=== PATIENT | female | born 1970 | race Caucasian/White ===

== ENCOUNTER 2018-10-22 13:16 | Emergency (ER) | payer BC ==
[~2018-10-22] VITALS: Wt 116.0 kg
[~2018-10-22 13:16] MED LIST: ALBU8.5H8 INH; PROM5SYR2 PO
[2018-10-22 13:26] VITALS: BP 139/79; PULSE 105; RESP 20
[2018-10-22] MEDS ORDERED: ALBUTEROL 0.083% (NEB) 2.5 MG/3 ML AMP HHN STA (13:56)
[2018-10-22] MEDS ORDERED: METHYLPREDNISOLONE 125 MG INJ IM ONE (14:00)
[2018-10-22] MEDS ORDERED: PRED20TA PO (14:57)
[2018-10-22] MEDS ORDERED: LEVA15HF6 INH (14:57)
[2018-10-22] MEDS ORDERED: D-ME473S2 PO (14:57)
--- NOTE | 2018-10-22 15:00 | ERD ---
ER Documentation Chief Complaint Chief Complaint COUGH, CHESTWALL PAIN INCREASES WITH COUGHING, SOB; DENIES PMH HPI 47-year-old female presents with slight coughing and possible wheezing starting today. She denies any fevers, chest pain, vomiting, abdominal pain. She has mild anterior chest pain with coughing and deep breathing. Patient denies any history of asthma. Patient denies any recent potential allergen exposures. ROS All systems reviewed and are negative except as per history of present illness. Medications Home Meds Active Scripts Dextromethorphan Hb-Promethazine Hcl* (Promethazine DM* Syrup) 473 Ml Syrup, 5 ML PO Q6 PRN for COUGH for 4 Days, ML Prov:GIOVANI HUNT MD 10/22/18 Levalbuterol* (Xopenex* HFA) 15 Gm Inha, 1-2 PUFF INH Q4 PRN for SHORTNESS OF BREATH, #1 EA Prov:GIOVANI HUNT MD 10/22/18 Prednisone* (Prednisone*) 20 Mg Tab, 40 MG PO DAILY for 4 Days, TAB Prov:GIOVANI HUNT MD 10/22/18 Albuterol Sulfate* (Proair HFA*) 8.5 Gm Hfa.aer.ad, 2 PUFF INH Q4, #1 INHALER Prov:NEVILLE OAKLEY 10/10/17 Promethazine HCl/Codeine (Prometh-Codein 6.25-10 mg/5 ml) 5 Ml Syrup, 10 ML PO Q6, #120 ML Prov:NEVILLE OAKLEY 10/10/17 Allergies Allergies: Coded Allergies: No Known Allergy (Unverified , 10/10/17) PMhx/Soc Medical and Surgical Hx: pt denies Surgical Hx Hx Cardiac Disorders: Yes (stroke 14 years ago) Hx Alcohol Use: No Hx Substance Use: No Hx Tobacco Use: Yes Smoking Status: Current every day smoker FmHx Family History: No diabetes, No coronary disease, No other Physical Exam Vitals Vital Signs Date Temp Pulse Resp B/P (MAP) Pulse Ox O2 O2 Flow FiO2 Time Delivery Rate 10/22/18 85 18 92 21 14:22 10/22/18 99.0 105 20 139/79 97 13:26 (99) Physical Exam Const: No acute distress Head: Atraumatic Eyes: Normal Conjunctiva ENT: Normal External Ears, Nose and Mouth. TMs and oropharynx normal. Neck: Full range of motion. No meningismus. Resp: Clear to auscultation bilaterally coarse cough with mild wheeze. No rales or retractions appreciated. Cardio: Regular rate and rhythm, no murmurs Abd: Soft, non tender, non distended. Normal bowel sounds Skin: No petechiae or rashes Back: No midline or flank tenderness Ext: No cyanosis, or edema Neur: Awake and alert Psych: Normal Mood and Affect Results 24 hrs Current Medications Medications Dose Sig/Antoine Start Time Status Last (Trade) Ordered Route PRN Stop Time Admin Dose Reason Admin 125 mg ONCE ONCE 10/22/18 DC 10/22/18 Methylprednis IM 14:00 14:16 olone Sodium 10/22/18 14:01 Succinate (Solu-Medrol) Albuterol 5 mg ONCE STAT 10/22/18 DC (Proventil HHN 13:56 0.083% (Neb)) 10/22/18 13:58 Procedures/MDM EKG: Rate/Rhythm: Normal Sinus Rhythm QRS, ST, T-waves: No changes consistent w/ acute ischemia Impression: No evidence of ischemia or arrhythmia. Impression-minimal sinus tachycardia, otherwise no acute findings on EKG. Patient given albuterol treatment x1, Solu-Medrol 125 IM. Patient had improved breath sounds without rales, retractions on serial exam. She had mild exploratory phase prolonged. Presents with coughing and wheezing starting today. She has no evidence of hypoxemia, rest or distress, signs of pneumonia, cardiac chest pain. She will be treated with a short course prednisone, Xopenex by request, promethazine DM, primary care follow-up and return precautions. The patient was stable with no new complaints during the ER course. Clinically, there is no current evidence to suggest meningitis, sepsis, acute abdomen, pneumonia, stroke, acute coronary syndrome, pulmonary embolism, aortic dissection or any other emergent condition appearing to require further evaluation or hospitalization. Patient counseled regarding my diagnostic impression and care plan. Prior to discharge all questions answered. Pt agrees with treatment plan and understands strict return precautions. Pt is instructed to follow up with primary care provider within 24- 48 hours. Precautionary instructions provided including instructions to return to the ER if not improving or for any worsening or changing symptoms or concerns. Departure Diagnosis: Primary Impression: Wheeze Additional Impression: URI, acute Condition: Stable Patient Instructions: Uri, Viral W/ Wheezing (Adult) Additional Instructions: May be early viral illness. Recheck for new or worsening symptoms with primary care doctor. GIOVANI HUNT MD Oct 22, 2018 15:00
== END 2018-10-22 15:07 | disposition home or self-care (01) ==
LOC: FTE 13:16
DX: J06.9 Acute upper respiratory infection, unspecified (principal); R06.2 Wheezing; F17.210 Nicotine dependence, cigarettes, uncomplicated; R07.89 Other chest pain
CPT/HCPCS: 93005; 94664; 96372; 99284; J2930; Z7610